=== PATIENT | female | born 1960 | race Asian ===

== ENCOUNTER 2023-01-02 09:27 | Emergency (ER) | payer BC ==
[~2023-01-02] VITALS: Ht 160 cm; Wt 56.7 kg
[2023-01-02 09:35] VITALS: BP_SYST 192; PULSE 60; RESP 18; TEMP 98.3; O2SAT 98
[2023-01-02] MEDS ORDERED: ONDANSETRON HCL 4 MG/2 ML VIAL IVP ONE ×2 (09:45→11:15)
[2023-01-02] MEDS ORDERED: MORPHINE 4 MG INJ. 4 MG/ML VIAL IVP ONE ×2 (09:45→11:15)
[2023-01-02] MEDS ORDERED: NACL 0.9% 1,000 ML IV ONE (10:00)
[2023-01-02] MEDS ORDERED: ENALAPRILAT DIHYDRATE 1.25 MG/ML VIAL IVP ONE (10:00)
[2023-01-02] MEDS ORDERED: BACITRACIN 1 GM OINT TP ONE (10:30)
[2023-01-02] MEDS ORDERED: NAPR-690 PO (13:02)
[2023-01-02] MEDS ORDERED: TRAM50TA2 PO (13:02)
[2023-01-02 13:21] VITALS: BP_SYST 172; PULSE 64; RESP 19; O2SAT 98
== END 2023-01-02 12:35 | disposition home or self-care (01) ==
LOC: SED 09:27
DX: S02.611A Fracture of condylar process of right mandible, initial encounter for closed fracture (principal); S02.612A Fracture of condylar process of left mandible, initial encounter for closed fracture; S01.81XA Laceration without foreign body of other part of head, initial encounter; S30.0XXA Contusion of lower back and pelvis, initial encounter; H72.92 Unspecified perforation of tympanic membrane, left ear; I10 Essential (primary) hypertension; E78.5 Hyperlipidemia, unspecified; Z79.899 Other long term (current) drug therapy; V18.0XXA Pedal cycle driver injured in noncollision transport accident in nontraffic accident, initial encounter; Y93.89 Activity, other specified; Y92.89 Other specified places as the place of occurrence of the external cause; Y99.8 Other external cause status
CPT/HCPCS: 99285; 70450; 96374; 96375; 96361; 70486; 72125; 72192; 96376; 12013; 76376; J2405; J2270; J7030

== ENCOUNTER 2023-01-11 15:32 | Emergency (ER) | payer BC ==
[~2023-01-11] VITALS: Ht 167.6 cm; Wt 57.2 kg
[~2023-01-11 15:32] MED LIST: NAPR-690 PO; TRAM50TA2 PO
[2023-01-11 15:38] VITALS: BP_SYST 151; PULSE 81; RESP 18; TEMP 98.3; O2SAT 98
[2023-01-11] MEDS ORDERED: iohexoL 350 mgI/mL, 100 ML INFUS..BTL IV ONE (16:46)
[2023-01-11 17:51] LABS: BASOPHILS # (AUTO) 0.1 K/uL (0.0-0.2); EOSINOPHILS # (AUTO) 0.2 K/uL (0.0-0.4); EOSINOPHILS % (AUTO) 4.1 % (0.0-4.0); HEMATOCRIT 38.5 % (36-48); HEMOGLOBIN 12.5 g/dL (12.0-16.0); LYMPHOCYTES # (AUTO) 1.3 K/uL (1.0-5.5); LYMPHOCYTES % (AUTO) 22.1 % (20.5-51.5); MEAN CORPUSCULAR HEMOGLOBIN 30 pg (27-31); MEAN CORPUSCULAR HGB CONC 33 % (32-36); MEAN CORPUSCULAR VOLUME 92 fL (79.0-98.0); MONOCYTES # (AUTO) 0.5 K/uL (0.0-1.0); MONOCYTES % (AUTO) 8.5 % (1.7-9.3); NEUTROPHILS # (AUTO) 3.7 K/uL (1.8-7.7); NEUTROPHILS % (AUTO) 64.3 % (40.0-70.0); PLATELET COUNT (AUTO) 366 K/uL (130-430); RED BLOOD CELL COUNT(AUTO) 4.17 MIL/uL (4.2-6.2); RED CELL DISTRIBUTION WIDTH 13.1 % (9.0-15.0); WHITE BLOOD COUNT (AUTO) 5.8 K/uL (4.8-10.8)
[2023-01-11 17:58] LABS: CALCIUM 9.4 mg/dL (8.4-11.0); CREATININE 0.48 mg/dL (0.55-1.30)
[2023-01-11 18:09] LABS: ALBUMIN 3.4 g/dL (3.4-4.8); TOTAL BILIRUBIN 0.3 mg/dL (0.0-1.0); TOTAL PROTEIN, SERUM 7.3 g/dL (6.4-8.3)
[2023-01-11 20:14] VITALS: BP_SYST 123; PULSE 83; RESP 17; TEMP 98; O2SAT 97
== END 2023-01-11 20:14 | disposition home or self-care (01) ==
LOC: SED 15:32
DX: S22.42XA Multiple fractures of ribs, left side, initial encounter for closed fracture (principal); I10 Essential (primary) hypertension; E78.5 Hyperlipidemia, unspecified; Z79.899 Other long term (current) drug therapy; V18.0XXA Pedal cycle driver injured in noncollision transport accident in nontraffic accident, initial encounter; Y93.89 Activity, other specified; Y92.89 Other specified places as the place of occurrence of the external cause; Y99.8 Other external cause status
CPT/HCPCS: 99285; 71275; 80053; 85025; 36415; 76376; Q9967